=== PATIENT | male | born 1995 | race Caucasian/White ===

== ENCOUNTER 2022-01-25 16:31 | Emergency (ER) | payer OTHER, SELFPAY ==
--- NOTE | ~2022-01-25 | XR_ITS ---
EXAMINATION: XR ankle RT min 3V DATE: 01/25/2022 16:50 INDICATION: Right ankle pain. Injury one month ago. TECHNIQUE: 4 views of right ankle were obtained. COMPARISON: None. FINDINGS: Bone alignment is normal. No fracture. Joint spaces are well maintained. IMPRESSION: 1. No fracture. Reviewed, dictated and finalized at location A. IMPRESSION: 1. No fracture.
[2022-01-25 16:38] VITALS: BP 138/77; PULSE 98; RESP 16; TEMP 37.2; O2SAT 100
--- NOTE | 2022-01-25 16:40 | ED.LOWEXIN ---
HPI - Extremity Injury (Lower) General Chief Complaint: Extremity Injury, Lower Stated Complaint: right ankle pain Time Seen by Provider: 01/25/22 16:40 Source: patient and RN notes reviewed Mode of arrival: ambulatory Limitations: no limitations History of Present Illness HPI Narrative: 26-year-old male presents to the [facility] with right ankle pain for approximately 1 month. Reports that he slipped fell twisted his ankle. No treatment since injury. Did not seek medical attention since injury. MD complaint: ankle injury Related Data Allergies Allergy/AdvReac Type Severity Reaction Status Date / Time No Known Allergies Allergy Verified 01/25/22 16:52 Review of Systems Review of Systems: All systems reviewed & are unremarkable except as noted in HPI and below Constitutional: Constitutional: Reports no additional constitutional complaints Eyes: Eyes: Reports no additional eye complaints ENT: Reports system reviewed and no additional complaints, except as documented Cardiovascular: Cardiovascular: Reports no additional cardiovascular complaints and Denies chest pain Respiratory: Respiratory: Reports no additional respiratory complaints and Denies cough Gastrointestinal: Gastrointestinal: Reports no additional gastrointestinal complaints and Denies abdominal pain Musculoskeletal: Musculoskeletal: Reports as per HPI, Reports arthralgias (Generalized right ankle) and Denies joint swelling Integumentary/Breasts: Skin/Breast: Reports system reviewed and no additional complaints, except as docu Neurologic: Reports system reviewed and no additional complaints, except as documented Psychiatric: Psychiatric: Reports no additional psychiatric complaints Allergic/Immunologic: Allergic/Immunologic: Reports no additional allergic/immunologic complaints PMFSH Past Medical History Medical History (Updated 01/25/22 @ 19:30 by Alexia Samson APRN) No significant medical problems Surgical History Surgical History (Updated 01/25/22 @ 19:30 by Alexia Samson APRN) No pertinent past surgical history Social History Social History (Updated 01/25/22 @ 19:31 by Alexia Samson APRN) Living arrangements: with family Gender identity (if verbalized by the patient): Male Comments At the time of my signature, I reviewed and agree with the nursing past medical, surgical, social, and family history. There is no relevant family history pertinent to the patient complaint. Exam Const: General: healthy appearing, no acute distress and alert Nutritional Appearance: well nourished Orientation/consciousness: patient oriented x3 Limitations: no limitations HENMT: Head: normal to inspection Eyes: Pupils: Equal, round and reactive pupils present Neck: Neck: normal visual inspection, no lymphadenopathy and no meningeal signs Chest: Chest palpation & inspection: normal inspection of the chest Resp: Effort & Inspection: normal respiratory effort Auscultation: clear to auscultation bilaterally Cardio: Rate: regular rate Rhythm: regular rhythm Skin: General skin exam: normal color Rashes: no rashes Neuro: General: patient oriented x3, moves all extremities, no meningeal signs and no focal motor deficits Cranial nerves: Yes Equal, round and reactive pupils present Speech: normal speech Gait exam (Neuro): Normal gait present Extrem: Right lower extremity: full ROM, normal capillary refill, no joint enlargement and ankle Details: tenderness (Generalized) and normal ROM; no swelling, no edema, no unusual warmth, no abrasions, no lacerations and no ecchymosis Psych: Appearance: grossly normal and well kempt Mental Status: mental status grossly normal Affect: normal affect Attitude: cooperative Thought content: Yes Normal thought content present Course Course Emergency Course: Discharge instructions reviewed with patient, as well as provided in writing per nursing staff. The instructions also include specific and strict
== END 2022-01-25 17:00 | disposition home or self-care (01) ==
PROVIDERS: Emergency Provider Nurse Practitioner
DX: S93.401A Sprain of unspecified ligament of right ankle, initial encounter (principal); S96.911A Strain of unspecified muscle and tendon at ankle and foot level, right foot, initial encounter; W01.0XXA Fall on same level from slipping, tripping and stumbling without subsequent striking against object, initial encounter
CPT/HCPCS: 73610; 99203; G0463

== ENCOUNTER 2022-04-04 14:36 | Emergency (ER) | payer OTHER, SELFPAY ==
--- NOTE | ~2022-04-04 | XR_ITS ---
EXAMINATION: [id number]_CR DATE: 04/04/2022 14:58 INDICATION: Lateral right rib pain post fall 2 weeks prior TECHNIQUE: A frontal inspiratory view of the chest and 3 views of the right ribs were obtained. COMPARISON: None FINDINGS: No rib fractures identified. No pneumothorax. No focal infiltrates, pleural effusion or pulmonary dylon ma. Cardiomediastinal silhouette is normal. IMPRESSION: 1. Normal chest and right rib radiographs. Reviewed, dictated and finalized at location B.
[2022-04-04 14:42] VITALS: BP 132/80; PULSE 71; RESP 16; TEMP 37.2; O2SAT 99
--- NOTE | 2022-04-04 15:04 | ED.FALL ---
HPI - Fall General Chief Complaint: Fall Stated Complaint: right side pain Time Seen by Provider: 04/04/22 15:04 Source: patient Mode of arrival: ambulatory Limitations: no limitations History of Present Illness HPI Narrative: 26-year-old male with no significant medical history presents with complaint of right-sided rib pain for 2 weeks. Reports that rib pain for started after falling 3 to 4 feet onto the back of a work truck. States that he landed on his right side onto rocks. Is having pain with movement, laughing, coughing. No shortness of breath. States that pain had somewhat improved since initial injury but today while carrying approximately 60 to 80 pounds of trevor boards at work pain returned. Has not taken any [id number] medications to treat his pain. Ambulatory with steady gait. No respiratory distress noted. All systems reviewed and negative except as noted above. Related Data Allergies Allergy/AdvReac Type Severity Reaction Status Date / Time No Known Allergies Allergy Verified 04/04/22 14:39 Review of Systems Review of Systems: CONSTITUTIONAL: Denies fever, chills, or sweats. EYES: Denies visual changes, redness, or discharge. ENT: Denies rhinorrhea, congestion, sore throat, or otalgia. CARDIOVASCULAR: Denies chest pain, palpitations, or edema. RESPIRATORY: Denies cough or dyspnea. GASTROINTESTINAL: Denies abdominal pain, nausea, vomiting, or diarrhea. GENITOURINARY: Denies dysuria or hematuria. SKIN: Denies rash or itching. MUSCULOSKELETAL: Denies back pain, joint pain, or myalgia. Reports right-sided rib pain. NEUROLOGIC: Denies headache, numbness, or weakness. PSYCHIATRIC: Denies anxiety or depression. All other systems reviewed are negative, except as documented in HPI. [facility] Past Medical History Medical History (Updated 04/04/22 @ 15:10 by Tara Concepcion NP) No significant medical problems Surgical History Surgical History (Updated 01/25/22 @ 19:30 by Alexia Samson APRN) No pertinent past surgical history Social History Social History (Updated 01/25/22 @ 19:31 by Alexia Samson APRN) Gender identity (if verbalized by the patient): Male Comments Patient is aware of diagnosis, understands and agrees to treatment plan. Anticipatory guidance given. Patient agrees to follow-up as directed and is aware of reasons to seek care at the emergency department. Portions of this record may have been created with voice recognition software Exam Narrative: GENERAL: This is a well-nourished, well-developed patient, in no apparent distress. HEAD: normocephalic, atraumatic. EYES: PERRL. Sclera clear/white. Vision is grossly intact. EARS: External ears normal NOSE: External nose normal NECK: Neck supple, non-tender without lymphadenopathy, masses or thyromegaly. CARDIOVASCULAR: Regular rate and rhythm without murmurs, gallops, or rubs. RESPIRATORY: Clear to auscultation. Breath sounds equal bilaterally. No wheezes, rales, or rhonchi. SKIN: warm, Dry, intact with no suspicious lesions or rash, good texture and turgor. NEURO: awake, alert, and oriented to person, place and time. There were no obvious focal neurologic abnormalities. EXTREMITIES: Normal range of motion to all extremities. MUSCULOSKELETAL: Tenderness to lateral aspect of right ribs. No bruising or swelling noted. Chest: Chest/axillae images: 1. tender on palpation Course Course Level of Care: Express Care Visit Vital Signs Vital signs: Vital Signs Temperature 37.2 C 04/04/22 14:42 Pulse Rate 71 04/04/22 14:42 Respiratory Rate 16 04/04/22 14:42 Blood Pressure 132/80 04/04/22 14:42 Pulse Oximetry 99 04/04/22 14:42 Oxygen Delivery Room Air 04/04/22 14:42 Temperature 37.2 C 04/04/22 14:42 Pulse Rate 71 04/04/22 14:42 Respiratory Rate 16 04/04/22 14:42 Blood Pressure 132/80 04/04/22 14:42 Pulse Oximetry 99 04/04/22 14:42 Oxygen Delivery Room Air 04/04/22 14
== END 2022-04-04 15:16 | disposition home or self-care (01) ==
PROVIDERS: Emergency Provider Nurse Practitioner Family
DX: S20.211A Contusion of right front wall of thorax, initial encounter (principal); W19.XXXA Unspecified fall, initial encounter
CPT/HCPCS: 71101; 99213; G0463

== ENCOUNTER 2024-03-19 13:27 | Emergency (ER) | payer OTHER, SELFPAY ==
--- NOTE | ~2024-03-19 | XR_ITS ---
EXAMINATION: XR knee LT min 4V DATE: 03/19/2024 13:51 INDICATION: Left knee pain. TECHNIQUE: 4 views of left knee were obtained. COMPARISON: None. FINDINGS: Bone alignment is normal. No fracture. Joint spaces are normal. No knee joint effusion. The re is soft tissue swelling anterior to the proximal tibia. IMPRESSION: 1. Soft tissue swelling anterior to the proximal tibia, likely bursitis. Reviewed, dictated and finalized at location A.
--- NOTE | 2024-03-19 13:29 | ED.LOWEXIN ---
HPI - Extremity Injury (Lower) General Chief Complaint: Extremity Injury, Lower Stated Complaint: Left Knee Pain Time Seen by Provider: 03/19/24 13:29 Source: patient Mode of arrival: ambulatory Limitations: no limitations History of Present Illness HPI Narrative: Irvin is a 28-year-old male patient presenting to the clinic today with complaints of left knee/collins pain. He reports that he has a swollen area to the inferior knee has been there for a while that is not painful however over the last few days he developed pain and swelling over the proximal tibia. He lays trevor for a living. Denies any known foreign body. Is also reporting cough and congestion-is not concerned about this today-states his kids are sick at home and he thinks that they got him sick. Temperature was 37.8? C. patient does not feel feverish. Related Data Allergies Allergy/AdvReac Type Severity Reaction Status Date / Time No Known Allergies Allergy Verified 04/04/22 14:39 Review of Systems Review of Systems: Pertinent positives per HPI. Patient denies any fever, chills, rash, headache, visual changes, dizziness, sore throat, shortness of breath, chest pain, palpitations, nausea, vomiting, diarrhea, constipation, abdominal pain, or any urinary issues. PMFSH Past Medical History Medical History No significant medical problems Surgical History Surgical History No pertinent past surgical history Social History Social History Living arrangements: with family Gender identity (if verbalized by the patient): Male Comments At the time of my signature, I reviewed and agree with the nursing past medical, surgical, social, and family history. There is no relevant family history pertinent to the patient complaint. Exam Narrative: General: Well-developed, well nourished, in no apparent distress Head: Normocephalic, atraumatic. Cardio: Regular rate and rhythm, s1 and s2 normal, no murmur appreciated. Resp: Clear to auscultation bilaterally, no rhonchi, rales, wheezing or rubs. Musculoskeletal: No deformity, swelling and mild tender to palpation over the anterior inferior knee with a fluid-filled mass, pain radiating down to the proximal anterior tibia, pain worse with full flexion of the knee, grossly normal range of motion, muscle strength strong and equal, peripheral pulse strong, no edema, no cyanosis, normal gait and station Course Course Emergency Course: Portions of this record may have been created with voice recognition software. Level of Care: Express Care Visit Vital Signs Vital signs: Vital Signs Temperature 37.8 C H 03/19/24 13:36 Pulse Rate 107 H 03/19/24 13:36 Respiratory Rate 15 03/19/24 13:36 Blood Pressure 127/80 03/19/24 13:36 Pulse Oximetry 99 03/19/24 13:36 Oxygen Delivery Room Air 03/19/24 13:36 Temperature 37.8 C H 03/19/24 13:36 Pulse Rate 107 H 03/19/24 13:36 Respiratory Rate 15 03/19/24 13:36 Blood Pressure 127/80 03/19/24 13:36 Pulse Oximetry 99 03/19/24 13:36 Oxygen Delivery Room Air 03/19/24 13:36 Vital signs reviewed Procedures Joint Aspiration/Injection Joint Asp./Inject. 1: Joint Aspiration Date: 03/19/24 Side of body: left Joint Aspirated: knee (infrapatellar bursae) Ultrasound Guidance: No Skin Prep: Povidone-Iodine1% Needle Size Used: 18G Fluid Obtained: viscous Total fluid obtained (mL): 11 Patient Tolerated Procedure: well and no complications Complications: none MDM - Extremity Injury (Lower) MDM Narrative Medical decision making narrative: At the time of visit patient is resting comfortably on the exam table. Patient appears to be nontoxic. Diagnostics: X-ray of the left knee shows soft tissue swelling ante
[2024-03-19 13:36] VITALS: BP 127/80; PULSE 107; RESP 15; TEMP 37.8; O2SAT 99
== END 2024-03-19 14:31 | disposition home or self-care (01) ==
PROVIDERS: Emergency Provider Nurse Practitioner Family
DX: M70.52 Other bursitis of knee, left knee (principal)
CPT/HCPCS: 20610; 73564; 87070; 87205; 99213; 99214; G0463

== ENCOUNTER 2025-08-13 14:00 | Emergency (ER) | payer BC, SELFPAY ==
--- NOTE | ~2025-08-13 | XR_ITS ---
EXAMINATION: XR chest 2V, 08/13/2025 14:15 CDT HISTORY: Cough fever x2 weeks COMPARISON: No comparisons available. Technique: 2 views obtained. Findings: Small basilar infiltrates No pneumothorax. Heart is normal size. Mediastinal and hilar contours are within normal limits. Bony thorax no acute abnormality. Impression: Early bilateral pneumonia Reviewed, dictated and finalized at location P. Impression: Early bilateral pneumonia
--- NOTE | 2025-08-13 14:05 | ED.GENADULT ---
HPI - General Adult General Chief complaint: Upper Respiratory Infection Stated complaint: Fever Time Seen by Provider: 08/13/25 14:12 Source: patient, RN notes reviewed and old records reviewed Mode of arrival: ambulatory Limitations: no limitations History of Present Illness HPI narrative: 30-year-old male presents to the [facility] with no complaints at this time except that every afternoon he runs a fever. Patient reports for the last 2 weeks every afternoon approximately 1:00 p.m. he rinse fevers of 100, becomes very tired and generally does not feel well Reports that he has taken Tylenol. Reports an occasional Onset (ago): week(s) (2) Related Data Allergies Allergy/AdvReac Type Severity Reaction Status Date / Time No Known Allergies Allergy Verified 08/13/25 14:02 Review of Systems Review of Systems: All systems reviewed & are unremarkable except as noted in HPI and below Constitutional: Constitutional: Reports as per HPI, Reports body ache(s), Reports fatigue and Reports fever(s) ENT: Reports system reviewed and no additional complaints, except as documented Cardiovascular: Cardiovascular: Reports no additional cardiovascular complaints, Denies chest pain and Denies dyspnea Respiratory: Respiratory: Reports as per HPI, Denies chest congestion, Reports cough and Denies dyspnea Musculoskeletal: Musculoskeletal: Reports no additional musculoskeletal complaints Integumentary/Breasts: Skin/Breast: Reports system reviewed and no additional complaints, except as docu PMFSH Past Medical History Medical History No significant medical problems Surgical History Surgical History No pertinent past surgical history Social History Social History Living arrangements: with family Gender identity (if verbalized by the patient): Male Comments At the time of my signature, I reviewed and agree with the nursing past medical, surgical, social, and family history. There is no relevant family history pertinent to the patient complaint. Exam Const: General: cooperative, healthy appearing, comfortable, no acute distress, well developed, alert and well nourished Nutritional Appearance: well nourished Orientation/consciousness: patient oriented x3 Limitations: no limitations HENMT: Head: normal to inspection Ears: hearing grossly normal bilaterally, external ears normal, TM's normal bilaterally, EAC's normal, mastoids normal and no periauricular adenopathy Mouth: Yes Normal oral and palatal mucosa present, Yes lip normal, Yes tongue normal and Yes moist mucous membranes Throat: posterior oropharynx normal, uvula midline and no uvular edema Eyes: General: appearance normal, both eyes and all related structures Alignment and Position: alignment normal Neck: Neck: normal visual inspection, full ROM, no lymphadenopathy and no meningeal signs Chest: Chest palpation & inspection: normal inspection of the chest Resp: Effort & Inspection: normal respiratory effort and able to speak in complete sentences Auscultation: crackles on the right in the lower lung ellis, no rales, no rhonchi, no wheezes and diminished lung sounds on the left in the lower lung ellis Cardio: Rate: regular rate Skin: General skin exam: normal color and no rashes or lesions noted Neuro: General: patient oriented x3, gait normal, moves all extremities and no meningeal signs Cognition (Neuro): normal cognition Speech: normal speech Gait exam (Neuro): Normal gait present Extrem: General: normal to inspection, full ROM, capillary refill normal and normal gait Psych: Appearance: grossly normal and well kempt Mental Status: mental status grossly normal Speech and movement: Normal speech and movement present and Clear speech present Affect: normal affect Attitude: cooperative Course Course Level of Care: Express Care Visit Vital Signs Vital signs: Vital Signs Temperature 100.0 F H 08/13/25 14:09 Pulse Rate 109 H 08/13/25 14:09 Respiratory Rate 20 08/13/25 14:09 Blood Pressure 134/89 08/13/25 14:09 Pulse Oximetry 100 08/13/25 14:09 Oxygen Delivery Room Air 08/13/25 14:09 Temperature 100.0 F H 08/13/25 14:09 Pulse Rate 109 H 08/13/25 14:09 Respiratory Rate 20 08/13/25 14:09 Blood Pressure 134/89 08/13/25 14:09 Pulse Oximetry 100 08/13/25 14:09 Oxygen Delivery Room Air 08/13/25 14:09 Reviewed Medical Decision Making MDM Narrative Medical decision making narrative: Patient sitting comfortably in exam room. Patient is nontoxic, vitals stable. Patient presents with 2 week history of generalized not feeling well, fevers at 1:00 p.m. every day. Patient's chest x-ray shows bilateral lower lobe pneumonia. Patient is appropriate for outpatient treatment with strict signs and symptoms to proceed to the emergency room which patient verbalized understanding Discharge instructions reviewed with patient, as well as provided in writing per nursing staff. The instructions also include specific and strict return/GO TO THE ER as well as f/u information. All questions have been answered, and the patient deny any further questions with discharge and discharge plan. Some parts of this dictation were generated by voice recognition software and may contain typographical and/or grammatical inaccuracies. Medical Records Medical records reviewed: Yes I reviewed the external patient's medical records. Vital Signs Vital Signs: Vital Signs Temperature 100.0 F H 08/13/25 14:09 Pulse Rate 109 H 08/13/25 14:09 Respiratory Rate 20 08/13/25 14:09 Blood Pressure 134/89 08/13/25 14:09 Pulse Oximetry 100 08/13/25 14:09 Oxygen Delivery Room Air 08/13/25 14:09 Temperature 100.0 F H 08/13/25 14:09 Pulse Rate 109 H 08/13/25 14:09 Respiratory Rate 20 08/13/25 14:09 Blood Pressure 134/89 08/13/25 14:09 Pulse Oximetry 100 08/13/25 14:09 Oxygen Delivery Room Air 08/13/25 14:09 Reviewed Lab Data Lab results reviewed: Yes I reviewed the patient's lab results. Labs: Reviewed Imaging Data Radiologist's impression: EXAMINATION: XR chest 2V, 08/13/2025 14:15 CDT HISTORY: Cough fever x2 weeks COMPARISON: No comparisons available. Technique: 2 views obtained. Findings: Small basilar infiltrates No pneumothorax. Heart is normal size. Mediastinal and hilar contours are within normal limits. Bony thorax no acute abnormality. Impression: Early bilateral pneumonia Critical Care Time Critical Care Time Critical Care Time: No Discharge Plan Discharge Clinical Impression: Bilateral pneumonia Qualifiers: Pneumonia type: due to unspecified organism Patient Disposition: Home Condition: Stable Instructions: Antibiotic Form, Pneumonia (ED) Additional Instructions: Take Tylenol alternating with Motrin as needed for aches pains fevers. Take antibiotics as prescribed for the bilateral Most importantly is following up with primary care provider in approximately 7-10 days. It is important the make sure that the lungs are healing For worsening symptoms go directly to the emergency room Patient Language: Bhutanese Prescriptions: New amoxicillin-pot clavulanate 875-125 mg tablet 1 tablet PO Q12H Qty: 20 0RF azithromycin 250 mg tablet See Rx Instructions .ROUTE .COMPLEX Qty: 6 0RF Rx Instructions: For 250 mg dose pack: take 500 mg today (day 1), then 250 mg for 4 days (days 2-5) Follow-up/Referrals: PHYSICIAN,GUN TESTER [Primary Care Provider, Internal Medicine] Ramiro Anderson MD [Physician, Family Practice] - 1 Week Clinical Impression: Bilateral pneumonia Stand Alone Forms: Work/School Release IP Time of Disposition: 14:28
[2025-08-13 14:09] VITALS: BP 134/89; PULSE 109; RESP 20; TEMP 37.8; O2SAT 100
== END 2025-08-13 14:37 | disposition home or self-care (01) ==
PROVIDERS: Emergency Provider Nurse Practitioner
DX: J18.9 Pneumonia, unspecified organism (principal)
CPT/HCPCS: 71046; 99213; G0463